=== PATIENT | male | born 1990 | race Two or more races ===

== ENCOUNTER 2019-12-04 15:41 | Emergency (ER) | payer OTHER ==
[~2019-12-04] VITALS: Ht 160 cm; Wt 81.6 kg
[2019-12-04] MEDS ORDERED: PEPCID AC20 MG PO (18:43)
[2019-12-04] MEDS ORDERED: ORPHENADRINE C100 MG PO (18:43)
[2019-12-04] MEDS ORDERED: ACETAMINOPHEN500 M1 PO (18:43)
== END 2019-12-04 18:58 | disposition home or self-care (01) ==
LOC: ER 15:41
DX: M94.0 Chondrocostal junction syndrome [Tietze] (principal); M62.830 Muscle spasm of back